=== PATIENT | female | born 1965 ===

== ENCOUNTER 2016-12-10 10:21 | Outpatient (CLI) | payer OTHER ==
--- NOTE | 2016-12-10 13:16 | Mammography Report ---
BILATERAL DIGITAL SCREENING MAMMOGRAM with CAD: 12/10/16 10:21:00 CLINICAL: Routine screening. COMPARISON:08/05/15 FINDINGS: The breasts are heterogeneously dense, which may obscured small masses. A right asymmetry with architectural distortion on the CC view requires additional imaging.No suspicious calcifications. The left breast is negative. IMPRESSION: Right asymmetry and architectural distortion requiring further workup. BI-RADS CATEGORY: 0 -- Additional Imaging Evaluation Required RECOMMENDATION: Recall for right lateralmedial and spot compression CC views and right breast ultrasound if needed. ACR BI-RADS MAMMOGRAPHIC CODES: 0 = Needs additional imaging evaluation; 1 = Negative; 2 = Benign; 3 = Probably benign; 4 = Suspicious; 5 = Malignant; 6 = Known biopsy-proven malignancy COMMENT: 1. Dense breast tissue, i.e., adenosis, fibrocystic changes, etc., may obscure an underlying neoplasm. 2. Approximately 10% of cancers are not detected with mammography. 3. A negative mammography report should not delay biopsy if a clinically suspicious mass is present. COMMENT: Patient follow-up letters are generated via our [employer] application.
== END 2016-12-10 10:22 | disposition home or self-care (01) ==
LOC: SPVWC 10:21
PROVIDERS: ATTEND Family Medicine
DX: Z12.31 Encounter for screening mammogram for malignant neoplasm of breast (principal)
CPT/HCPCS: 77067; G0202

== ENCOUNTER 2016-12-31 09:35 | Outpatient (CLI) | payer OTHER ==
--- NOTE | 2016-12-31 10:57 | Mammography Report ---
RIGHT DIGITAL DIAGNOSTIC MAMMOGRAM : 12/31/16 09:35:00 CLINICAL: Recalled for asymmetry. COMPARISON:12/10/16 screening FINDINGS: ML and spot compression CC views were performed. Satisfactory placement of asymmetry. The lateral view is negative. IMPRESSION: Negative Mammogram. BI-RADS CATEGORY: 1 -- Negative RECOMMENDATION: Routine mammographic screening in one year. ACR BI-RADS MAMMOGRAPHIC CODES: 0 = Needs additional imaging evaluation; 1 = Negative; 2 = Benign; 3 = Probably benign; 4 = Suspicious; 5 = Malignant; 6 = Known biopsy-proven malignancy COMMENT: 1. Dense breast tissue, i.e., adenosis, fibrocystic changes, etc., may obscure an underlying neoplasm. 2. Approximately 10% of cancers are not detected with mammography. 3. A negative mammography report should not delay biopsy if a clinically suspicious mass is present. COMMENT: Patient follow-up letters are generated via our [facility] application.
--- NOTE | 2016-12-31 13:25 | Ultrasound Report ---
LEFT BREAST ULTRASOUND: 12/31/16 09:35:00 CLINICAL: Left breast pain. Negative screening mammogram 12/10/16 COMPARISON: 12/10/16 and 08/05/15 mammograms. FINDINGS: Ultrasound of the left breast(including all four quadrants and the retroareolar area) was performed and demonstrated normal fibroglandular structures are normal fatty structures. No mass, cyst or shadowing. IMPRESSION: Negative left breast ultrasound. BI-RADS 1 - - Negative RECOMMENDATION: Clinical followup and routine mammographic screening in one year.
== END 2016-12-31 09:36 | disposition home or self-care (01) ==
LOC: SPVWC 09:35
PROVIDERS: ATTEND Family Medicine
DX: N64.89 Other specified disorders of breast (principal); N64.4 Mastodynia
CPT/HCPCS: 76641; G0206